=== PATIENT | male | born 1940 | race Caucasian/White ===

== ENCOUNTER 2018-09-06 14:12 | Emergency (ER) | payer MEDICARE ==
[2018-09-06] MEDS ORDERED: traMADol 50 MG Tab ONE (14:45)
--- NOTE | 2018-09-06 18:55 | CR ---
DATE OF SERVICE: 09/06/2018 CLINICAL DATA: Injury. RIGHT FEMUR: No acute fracture or dislocation. No lytic or blastic bone lesions. There are vascular calcifications in the soft tissues. [id number] [facility]
--- NOTE | 2018-09-06 23:37 | ER ---
DATE OF SERVICE: 09/06/2018 HISTORY OF PRESENT ILLNESS: The patient is a 77-year-old white male who comes in today. He was trying to push a log off his dock when he fell in and fell over the log. He was using a pole, it slipped, and he fell in. He notes he hit the log, went under the log, came up on the other side of the dock, grabbed the pole, managed to push himself back over to the dock as he was unable to swim, went hand over hand along the edge of the dock until he got to a guide mick wire that was holding the dock in and walked himself up on the bank. This actually happened this morning about 4 hours prior to presentation. The patient did not inhale any water. He is not short of breath. He is complaining of pain in the left upper chest and on the right thigh. He also has some injury to the right hand. The hand has a good range of motion. He does not feel there is anything significantly wrong with this other than an abrasion and a bruise. He does have a couple of abrasions on his knee and some swelling on the right thigh. ALLERGIES: LISINOPRIL. CURRENT MEDICATIONS: Insulin NPH 50 units daily, insulin regular 35 units t.i.d., Mick aspirin, allopurinol 300 mg p.o. daily, levothyroxine 200 mcg p.o. daily, hydrochlorothiazide 25 mg p.o. daily, simvastatin 40 mg p.o. at bedtime, and amlodipine 10 mg at bedtime. PHYSICAL EXAMINATION: GENERAL: He is alert, oriented, no apparent distress. VITAL SIGNS: Temperature is 98, pulse is 58, blood pressure is 157/59, O2 saturation is 96% on room air. HEENT: Unremarkable. NECK: Supple. No nodes. LUNGS: Clear. On the patient's right chest over the pectoral muscles, he has an abrasion and some ecchymosis. He has a good range of motion in the shoulder. HEART: Regular sinus rhythm. ABDOMEN: Benign, soft, positive bowel sounds. Nontender. MUSCULOSKELETAL: His hips are not tender nor is his pelvis. He does have a significant swelling on the right upper thigh. There is an abrasion on the right knee. The thigh feels relatively soft but is markedly tender. I would suspect that the patient has a fairly large hematoma under there. He does not have a really hard area. Distal pulses are intact on his dorsalis pedis. Good capillary refill and good sensation. DIAGNOSTIC DATA: An x-ray was obtained which does not show any femur fracture. There really is no point in x-raying his chest as we are not likely to do anything for a rib fracture. He feels actually the thigh is worse than the chest. ASSESSMENT: Multiple contusions, hematoma after falling in the river. PLAN: I have given him some tramadol. He notes that he probably does not need anything for pain because it is not bad if he just sits there. However, it may get worse later on tonight. I did discuss with him if he gets any pain or numbness distal to the injury or the injury starts getting really hard and his pain increases dramatically he needs to return to clinic to make sure there is no compartment syndrome. We discussed that mechanism and what to look for. If the radiologist sees anything different, we will contact him. If he develops any worsening symptoms, etc, would have him return to clinic. He did not get a shot of Toradol because 2 years ago he had an elevated BUN and creatinine. He is diabetic and 77 with an elevated BUN and creatinine, so I did not want to give him an NSAID. He notes he takes an occasional naproxen but only one and fairly infrequently and was told by his draw operator that for his age it is normal to have elevated BUN and creatinine; however, that would give him a fair decrease in kidney function, and I would be reluctant to do the Toradol. He notes he feels pretty good if he just sits still anyway, but I did give him some tramadol just in case, 10 tablets. JULITO/FLORINA /[id number] PHILLIP
== END 2018-09-06 15:15 | disposition home or self-care (01) ==
LOC: LB.ED 14:12
DX: S20.211A Contusion of right front wall of thorax, initial encounter (principal); S80.211A Abrasion, right knee, initial encounter; Z88.8 Allergy status to other drugs, medicaments and biological substances; Z79.899 Other long term (current) drug therapy; W01.198A Fall on same level from slipping, tripping and stumbling with subsequent striking against other object, initial encounter
CPT/HCPCS: 73552-RT; 99283-25; A9270-GY